=== PATIENT | female | born 2000 | race Two or more races ===

== ENCOUNTER → 2023-05-03 | Emergency (ER) | payer OTHER ==
[~2023-05-03] VITALS: Ht 170.2 cm; Wt 57.6 kg
[~2023-05-03] MED LIST: IRON240 MG PO; PRENATAL + DHA1 EAC1 PO
[2023-05-03 16:18] LABS: PH,URINE 6.5 (5.0-8.0); URINE APPEARANCE Cloudy; URINE BILIRRUBIN Negative (NEGATIVE); URINE BLOOD Negative; URINE COLOR Yellow; URINE GLUCOSE Negative (NEGATIVE); URINE LEUKOCYTE Trace; URINE NITRATE Negative; URINE PROTEIN Negative (NEGATIVE)
[2023-05-03 16:22] LABS: URINE BACTERIA 2499.7 uL (0.0-1933); URINE RBC 13.6 uL (0.0-20.8); URINE WBC 18.8 uL (0.0-23.2)
[2023-05-03 16:37] LABS: HEMATOCRIT 25.7 % (36.0-45.00); MEAN CORPUSCULAR HGB CONC 30.9 g/dl (32.0-36.0); PLATELET COUNT 425 K/uL (150-450); RED BLOOD COUNT 3.99 M/uL (4.00-6.00); RED CELL DISTRIBUTION WIDTH 17.5 % (11.5-14.5)
[2023-05-03 16:39] LABS: MEAN CELL VOLUME 64.5 fL (80.00-100.00)
[2023-05-03 16:48] LABS: URINE EPITHELIAL CELLS > 201.7 uL (0.0-38.8)
[2023-05-03 16:50] LABS: URINE SPERM A; URINE YEAST NEGATIVE /hpf
== END | disposition home or self-care (01) ==
LOC: ER 11:34
PROVIDERS: General Practice
DX: O26.892 Other specified pregnancy related conditions, second trimester (principal); A90 Dengue fever [classical dengue]; Z3A.20 20 weeks gestation of pregnancy; D64.9 Anemia, unspecified; Z91.013 Allergy to seafood

== ENCOUNTER 2023-05-05 09:39 | Outpatient (CLI) | payer OTHER | END 2023-05-05 09:41 | disposition home or self-care (01) | LOC: PRENATAL 09:39 | PROVIDERS: ATTEND Obstetrics & Gynecology Maternal & Fetal Medicine | DX: O35.3XX0 Maternal care for (suspected) damage to fetus from viral disease in mother, not applicable or unspecified (principal); O44.00 Complete placenta previa NOS or without hemorrhage, unspecified trimester; O99.019 Anemia complicating pregnancy, unspecified trimester; Z3A.20 20 weeks gestation of pregnancy ==

== ENCOUNTER 2023-06-19 09:25 | Inpatient (IN) | payer OTHER ==
[~2023-06-19] VITALS: Ht 167.6 cm; Wt 62.6 kg
[2023-06-19] MEDS ORDERED: ACETAMINOPHEN 500 MG GEL..CAP PO ONE (10:45)
[2023-06-19 11:21] LABS: MEAN CORPUSCULAR HGB CONC 30.6 g/dl (32.0-36.0); PLATELET COUNT 722 K/uL (150-450); RED BLOOD COUNT 3.57 M/uL (4.00-6.00)
[2023-06-19 11:34] LABS: HEMATOCRIT 22.7 % (36.0-45.00); HEMOGLOBIN 6.9 g/dL (12.0-15.00); MEAN CELL VOLUME 63.6 fL (80.00-100.00); MEAN CORPUSCULAR HEMOGLOBIN 19.3 pg (27.00-32.0)
[2023-06-19 12:22] LABS: MEAN CORPUSCULAR HGB CONC 29.7 g/dl (32.0-36.0); PLATELET COUNT 757 K/uL (150-450); RED BLOOD COUNT 3.66 M/uL (4.00-6.00); RED CELL DISTRIBUTION WIDTH 19.9 % (11.5-14.5)
[2023-06-19 12:32] LABS: HEMATOCRIT 23.5 % (36.0-45.00); MEAN CELL VOLUME 64.2 fL (80.00-100.00); MEAN CORPUSCULAR HEMOGLOBIN 19.1 pg (27.00-32.0)
[2023-06-19] MEDS ORDERED: 0.9 % SODIUM CHLORIDE 1,000 ML IV SCH (17:00)
[2023-06-19] MEDS ORDERED: ACETAMINOPHEN 500 MG GEL..CAP PO PRN (22:30)
[2023-06-20] MEDS ORDERED: BUTALB/ACETAMINOPHEN/CAFFEINE 1 TAB TABLET PO STA (13:08)
[2023-06-20] MEDS ORDERED: BUTALB/ACETAMINOPHEN/CAFFEINE 1 TAB TABLET PO PRN (13:15)
[2023-06-20 17:16] LABS: HEMATOCRIT 28.3 % (36.0-45.00); MEAN CORPUSCULAR HGB CONC 32.9 g/dl (32.0-36.0); PLATELET COUNT 656 K/uL (150-450); RED BLOOD COUNT 4.17 M/uL (4.00-6.00); RED CELL DISTRIBUTION WIDTH 21.5 % (11.5-14.5)
[2023-06-20 17:18] LABS: MEAN CORPUSCULAR HEMOGLOBIN 22.3 pg (27.00-32.0)
[2023-06-20 17:19] LABS: HEMOGLOBIN 9.3 g/dL (12.0-15.00)
[2023-06-20] MEDS ORDERED: SOD FERRIC GLUC COMPLX/SUCROSE 125 MG in 0.9 % SODIUM CHLORIDE 100 ML IV SCH (18:04)
== END 2023-06-21 09:37 | disposition home or self-care (01) | DRG 833 ==
LOC: ER 09:25 → SEC-K 17:19 → OB/GYN 17:19
PROVIDERS: Emergency Medicine; ADMIT Obstetrics & Gynecology; ATTEND Obstetrics & Gynecology
PROC: 4A1HXCZ Monitoring of Products of Conception, Cardiac Rate, External Approach (ICD-10-PCS; principal; 2023-06-19)
PROC: 30233N1 Transfusion of Nonautologous Red Blood Cells into Peripheral Vein, Percutaneous Approach (ICD-10-PCS; 2023-06-20)
DX: O99.012 Anemia complicating pregnancy, second trimester (principal); D50.8 Other iron deficiency anemias; Z3A.23 23 weeks gestation of pregnancy; Z20.822 Contact with and (suspected) exposure to COVID-19

== ENCOUNTER 2023-06-30 10:10 | Outpatient (CLI) | payer OTHER | END 2023-06-30 10:14 | disposition home or self-care (01) | LOC: PRENATAL 10:10 | PROVIDERS: ATTEND Obstetrics & Gynecology Maternal & Fetal Medicine | DX: O26.849 Uterine size-date discrepancy, unspecified trimester (principal); O34.219 Maternal care for unspecified type scar from previous cesarean delivery; O99.019 Anemia complicating pregnancy, unspecified trimester; Z3A.28 28 weeks gestation of pregnancy ==